=== PATIENT | male | born 1980 | race Caucasian/White ===

== ENCOUNTER 2018-06-23 17:27 | Emergency (ER) | payer OTHER ==
[~2018-06-23] VITALS: Ht 182.9 cm; Wt 74.8 kg
[~2018-06-23 17:27] MED LIST: IBUPROFEN 600600 M1 PO; NOHOMEMEDICATIONS; ULTRAM 50MG TAB50 MG PO
[2018-06-23] MEDS ORDERED: NAPROSYN500 MG PO (20:27)
[2018-06-23] MEDS ORDERED: HYDROCODONE-AP1 EAC6 PO (20:27)
[2018-06-23] MEDS ORDERED: KEFLEX500 M1 PO (20:27)
[2018-06-23 20:43] VITALS: BP 137/82
== END 2018-06-23 20:43 | disposition home or self-care (01) ==
LOC: ER 17:27
DX: S01.112A Laceration without foreign body of left eyelid and periocular area, initial encounter (principal); F17.210 Nicotine dependence, cigarettes, uncomplicated; W20.8XXA Other cause of strike by thrown, projected or falling object, initial encounter; Y92.89 Other specified places as the place of occurrence of the external cause; Y93.89 Activity, other specified; Y99.8 Other external cause status